=== PATIENT | female | born 1940 | race African-American/Black ===

== ENCOUNTER 2017-08-03 10:00 | Outpatient (CLI) | payer MEDICARE, OTHER | END 2017-08-03 10:01 | disposition home or self-care (01) | LOC: BICMAMMO 10:00 | PROVIDERS: ATTEND Internal Medicine | DX: Z12.31 Encounter for screening mammogram for malignant neoplasm of breast (principal) | CPT/HCPCS: 77063 ==

== ENCOUNTER 2018-01-03 09:53 | Outpatient (CLI) | payer MEDICARE, OTHER ==
--- NOTE | 2018-01-03 13:57 | MRI ---
BRAIN MRI WITH AND WITHOUT CONTRAST: COMPARISON: 01/13/17, 01/19/16, 04/21/15. TECHNIQUE: Brain MRI is performed with and without intravenous Gadolinium administration. Multisequential, mult iplanar imaging is performed. HISTORY: Followup benign neoplasm of pituitary gland. Yearly followup. FINDINGS: Calvarium has a normal T1 marrow signal intensity. Midline brain parenchymal structures are unremark able. Stable postsurgical changes. There is mucosal disease involving the left and right sphenoid s inus. Fat patchy material is noted and unchanged. T2 and FLAIR white matter hyperintensities due to chronic small-vessel ischemic changes are noted. Visualized optic chiasm, prechiasmatic optic nerves are unremarkable. Central arterial flow voids are maintained. Absent restricted diffusion. Stable rightward deviation of the pituitary stalk. Stable appearance of the sella. No evidence of a microadenoma. No evidence of a macroadenoma. No pathologic enhancement of the brain parenchyma. Mild mucosal disease involving the paranasal sinuses. Adequate mastoid air cell aeration. IMPRESSION: Stable postsurgical changes. No MR evidence of a recurrent microadenoma or macroadenoma. POS: [facility]
[2018-01-03] MEDS ORDERED: Gadobenate Dimeglumine 529 MG/1 ML (20ML VIAL) ONE (15:06)
== END 2018-01-03 09:54 | disposition home or self-care (01) ==
LOC: TBSIIMAG 09:53
PROVIDERS: ATTEND Neurological Surgery
DX: D35.2 Benign neoplasm of pituitary gland (principal); Z98.890 Other specified postprocedural states
CPT/HCPCS: 70553; 82565; A9579

== ENCOUNTER 2018-08-07 09:17 | Outpatient (CLI) | payer MEDICARE, OTHER | END 2018-08-07 09:18 | disposition home or self-care (01) | LOC: BICMAMMO 09:17 | PROVIDERS: ATTEND Internal Medicine | DX: Z12.31 Encounter for screening mammogram for malignant neoplasm of breast (principal); R92.1 Mammographic calcification found on diagnostic imaging of breast; Z80.3 Family history of malignant neoplasm of breast; Z98.890 Other specified postprocedural states | CPT/HCPCS: 77063; 77067 ==

== ENCOUNTER 2019-01-01 13:42 | Outpatient (CLI) | payer MEDICARE, OTHER ==
--- NOTE | 2019-01-01 15:20 | MRI ---
MRI Brain W WO Con: 01/01/2019 12:00 AM CLINICAL HISTORY: Benign neoplasm of pituitary gland. Follow-up. COMPARISON: 01/03/2018 FINDINGS: Extra axial spaces: Normal in size and morphology for the patient's age. Acute infarction: None. Ventricular system: Stable. Basal cisterns: Normal. Cerebral parenchyma: Microvascular ischemic changes. Midline shift: None. Cerebellum: Normal. Brainstem: Normal. Paranasal sinuses:Persistent marked abnormal signal opacification of the sphenoid sinus. Intraaxial Enhancement: None Stable appearance of the pituitary gland, without newly developed pituitary lesion. Rightward deviati on and thickening of pituitary infundibulum is similar in appearance. IMPRESSION:Stable exam.
[2019-01-01] MEDS ORDERED: Gadobenate Dimeglumine 529 MG/1 ML (20ML VIAL) ONE (17:13)
== END 2019-01-01 13:43 | disposition home or self-care (01) ==
LOC: TBSIIMAG 13:42
PROVIDERS: ATTEND Neurological Surgery
DX: D35.2 Benign neoplasm of pituitary gland (principal)
CPT/HCPCS: 70553; 82565; A9577

== ENCOUNTER 2019-01-06 15:13 | Emergency (ER) | payer MEDICARE, OTHER | END 2019-01-06 16:40 | disposition home or self-care (01) | LOC: ERS 15:13 | DX: I10 Essential (primary) hypertension (principal); E03.9 Hypothyroidism, unspecified; E78.5 Hyperlipidemia, unspecified | CPT/HCPCS: 99283 ==

== ENCOUNTER 2019-08-08 09:00 | Outpatient (CLI) | payer MEDICARE, OTHER ==
--- NOTE | 2019-08-08 10:03 | MMO ---
Bilateral MAMMO Bilat Screen [facility]. CLINICAL HISTORY: Patient is 79 years old and is seen for screening. The patient has no personal history of cancer. The patient has a history of right Lumpectomy - benign. VIEWS: The views performed were: bilateral craniocaudal with tomosynthesis and bilateral mediolateral oblique with tomosynthesis. FILMS COMPARED: The present examination has been compared to prior imaging studies performed at [facility] on 08/03/2017 and 08/07/2018. This study has been interpreted with the assistance of computer-aided detection. MAMMOGRAM FINDINGS: There are scattered fibroglandular densities. Finding 1: There is a stable post-surgical scar seen in the right breast. Finding 2: There are benign appearing calcifications seen in both breasts. There are no suspicious masses, suspicious calcifications, or new areas of architectural distortion. IMPRESSION: THERE IS NO MAMMOGRAPHIC EVIDENCE OF MALIGNANCY. A ROUTINE FOLLOW-UP MAMMOGRAM IN 1 YEAR IS RECOMMENDED. THE RESULTS OF THIS EXAM WERE SENT TO THE PATIENT. ACR BI-RADS Category 2 - Benign finding MAMMOGRAPHY NOTE: 1. A negative mammogram report should not delay a biopsy if a dominant of clinically suspicious mass is present. 2. Approximately 10% to 15% of breast cancers are not detected by mammography. 3. Adenosis and dense breasts may obscure an underlying neoplasm. Reported by: MYRA PORTILLO MD Electonically Signed: [id number]
== END 2019-08-08 09:01 | disposition home or self-care (01) ==
LOC: BICMAMMO 09:00
PROVIDERS: ATTEND Internal Medicine
DX: Z12.31 Encounter for screening mammogram for malignant neoplasm of breast (principal); Z91.89 Other specified personal risk factors, not elsewhere classified
CPT/HCPCS: 77063; 77067

== ENCOUNTER 2020-09-01 09:53 | Outpatient (CLI) | payer MEDICARE, OTHER ==
--- NOTE | 2020-09-01 11:14 | MMO ---
Bilateral MAMMO Bilat Screen [facility]. CLINICAL HISTORY: Patient is 80 years old and is seen for screening. The patient has the following family history of breast cancer: daughter, at age 56, malignant (generic). The patient has no personal history of cancer. The patient has a history of right Excisional Biopsy - benign. VIEWS: The views performed were: bilateral craniocaudal with tomosynthesis and bilateral mediolateral oblique with tomosynthesis. FILMS COMPARED: The present examination has been compared to prior imaging studies performed at [facility] on 08/03/2017, 08/07/2018 and 08/08/2019, and at [facility] on 08/02/2016. This study has been interpreted with the assistance of computer-aided detection. MAMMOGRAM FINDINGS: There are scattered fibroglandular densities. There is a stable post-surgical scar seen in the upper-outer region of the right breast. There are no suspicious masses, suspicious calcifications, or new areas of architectural distortion. IMPRESSION: THERE IS NO MAMMOGRAPHIC EVIDENCE OF MALIGNANCY. A ROUTINE FOLLOW-UP MAMMOGRAM IN 1 YEAR IS RECOMMENDED. THE RESULTS OF THIS EXAM WERE SENT TO THE PATIENT. ACR BI-RADS Category 2 - Benign finding MAMMOGRAPHY NOTE: 1. A negative mammogram report should not delay a biopsy if a dominant of clinically suspicious mass is present. 2. Approximately 10% to 15% of breast cancers are not detected by mammography. 3. Adenosis and dense breasts may obscure an underlying neoplasm. Reported by: PADMINI WILKS MD Electonically Signed: [id number]
== END 2020-09-01 09:54 | disposition home or self-care (01) ==
LOC: BICMAMMO 09:53
PROVIDERS: ATTEND Internal Medicine
DX: Z12.31 Encounter for screening mammogram for malignant neoplasm of breast (principal); Z91.89 Other specified personal risk factors, not elsewhere classified; Z80.3 Family history of malignant neoplasm of breast
CPT/HCPCS: 77063; 77067

== ENCOUNTER 2021-09-03 09:17 | Outpatient (CLI) | payer MEDICARE, OTHER | END 2021-09-03 09:18 | disposition home or self-care (01) | LOC: BICMAMMO 09:17 | PROVIDERS: ATTEND Internal Medicine | DX: Z12.31 Encounter for screening mammogram for malignant neoplasm of breast (principal); Z91.89 Other specified personal risk factors, not elsewhere classified; Z80.3 Family history of malignant neoplasm of breast | CPT/HCPCS: 77063; 77067 ==

== ENCOUNTER 2022-02-16 09:54 | Outpatient (CLI) | payer MEDICARE, OTHER | END 2022-02-16 09:55 | disposition home or self-care (01) | LOC: TBSIIMAG 09:54 | PROVIDERS: ATTEND Neurological Surgery | DX: D35.2 Benign neoplasm of pituitary gland (principal) | CPT/HCPCS: 70553; 82565 ==

== ENCOUNTER 2022-09-11 20:37 | Emergency (ER) | payer MEDICARE, OTHER ==
[2022-09-11] MEDS ORDERED: Ipratropium/Albuterol 3 ML NEB ONE (21:33)
== END 2022-09-11 22:46 | disposition home or self-care (01) ==
LOC: ERS 20:37
DX: J06.9 Acute upper respiratory infection, unspecified (principal); E03.9 Hypothyroidism, unspecified; I10 Essential (primary) hypertension; F17.210 Nicotine dependence, cigarettes, uncomplicated; E78.5 Hyperlipidemia, unspecified
CPT/HCPCS: 71045; J7620

== ENCOUNTER 2022-09-20 09:16 | Outpatient (CLI) | payer MEDICARE, OTHER | END 2022-09-20 09:17 | disposition home or self-care (01) | LOC: BICMAMMO 09:16 | PROVIDERS: ATTEND Internal Medicine | DX: Z12.31 Encounter for screening mammogram for malignant neoplasm of breast (principal); Z80.3 Family history of malignant neoplasm of breast; Z91.89 Other specified personal risk factors, not elsewhere classified; Z98.890 Other specified postprocedural states | CPT/HCPCS: 77063; 77067 ==

== ENCOUNTER 2023-09-22 09:36 | Outpatient (CLI) | payer MEDICARE, OTHER | END 2023-09-22 09:37 | disposition home or self-care (01) | LOC: BICMAMMO 09:36 | PROVIDERS: ATTEND Internal Medicine | DX: Z12.31 Encounter for screening mammogram for malignant neoplasm of breast (principal); Z80.3 Family history of malignant neoplasm of breast; Z91.89 Other specified personal risk factors, not elsewhere classified | CPT/HCPCS: 77063; 77067 ==